=== PATIENT | female | born 2005 | race Caucasian/White ===

== ENCOUNTER 2024-04-06 00:32 | Observation (INO) ==
[2024-04-06] MEDS ORDERED: ONDANSETRON INJ 2 MG/ML 2 ML VIAL IV PRN ×2 (01:25→07:43)
--- NOTE | 2024-04-06 01:38 | History & Physical Report ---
Date of Service April 06, 2024 Assessment & Plan (1) Appendicitis: Plan: Due to the patient's symptomatology and findings on CT scan she has been transferred to [facility] on the surgical service. Will proceed as follows: N.p.o. status will be implemented Will provide IV fluid for hydration Analgesics to be provided Antiemetics we provided The patient did receive antibiotics in the form of Zosyn while at [facility]. I did call the transferring facility and the patient received this antibiotic on 04/05/2024 with a dose finishing at approximately 11:45 PM. Will therefore initiate her next dose of this medication at approximate 4:00 AM on 04/06/2024. (This plan was discussed with pharmacy) The patient did have an abnormal urinalysis at her previous facility. I will order a urine culture. The selected antibiotic should cover the most likely urinary pathogens, if present. Will tentatively plan on having the patient undergo an appendectomy with Dr. Yoni Treadwell, amounting to just to general surgery the morning of 04/06/2024 Will use SCDs for DVT prevention, no chemical means due to planned surgery Additional recommendations be forthcoming based on operative findings and her postoperative recovery thereafter She will be a level 1 full code as above. hx/exam/imaging c/w acute appendicitis. discussed risks ( bleeding/infection/injury to an organ/blood clots etc...) questions answered. pt agreeable. will proceed this AM with lap appendectomy Admission and Anticipated Discharge Date Admission Date: April 06, 2024 History of Present Illness Chief Complaint: Abdominal pain Primary Care Provider: Moni Davis MD This is a 19-year-old female who was transferred to [place], [place] from [facility] in [place], [place]. The patient currently attends college at [employer] and approximately 1 week ago developed abdominal pain that she notes was in the right lower quadrant of her abdomen. She does note that she was seen at a hospital branch of [facility] in [place], [place], approximately 3 days after her symptoms began where she was diagnosed with colitis. (She does note that they did perform a CT scan of her abdomen and pelvis). Due to the concern for colitis she was placed on antibiotics in form of metronidazole which she says she has been taking. Patient notes that despite taking these antibiotics her pain has persisted. The patient does reside in [place], [place] and was seen at [facility] ([facility]) earlier today due to persistent abdominal pain. Again the patient does have the pain is in the right lower quadrant of her abdomen without any radiation or modifying factors. She denies any nausea or vomiting. She denies any fevers, shakes, or chills. She notes that she has never had surgery in the past. While at [facility] the patient did undergo a repeat CT scan of abdomen pelvis that showed that her appendix measured approximately 9 mm. There is some surrounding fat stranding but no evidence of perforation. The interpreting radiologist felt that this raise a concern for an early acute appendicitis. Labs include a CBC where her white blood cell count, hemoglobin, hematocrit, and platelet count were normal. Chemistry profile showed sodium and potassium as well as BUN and creatinine were normal. She did not have any elevation of her LFTs or lipase. Patient also had a negative test. Urinalysis was concerning for urinary tract infection. Due to concern for early acute appendicitis transferred to [facility] was requested. I visited with the patient and evaluated her in room 381. At the time of my interview she was resting comfortably at the bedside. She was in no distress. Concerning past medical history she denies any medical problems Concerning past surgical history she denies any previous surgeries Patient says she is not on any medicine allergies and only takes control pills Concerning social history she does not smoke or vape but does drink alcohol socially Concerning family history she is not aware of any family medical problems. Allergies Allergy/AdvReac Type Severity Reaction Status Date / Time No Known Allergies Allergy Mild Verified 01/19/23 11:54 Home Medications Medication Instructions Recorded Confirmed Type Amoxicillin (Amoxil 250MG/5ML *) ##0 06/10/06 01/19/23 History BENADRYL ##0 06/10/06 01/19/23 History Past Med/Surg History Problem List (Updated 04/06/24 @ 01:36 by Matias Stanley PA-C) Appendicitis Social History Smoking Status: Never smoker Hx Alcohol Use: Yes Alcohol type: wine Hx Substance Use: No Preferred Language: Frisian Communication Ability: Effective Bone Grinder Required: No Beliefs That Will Affect Care: None Current Living Situation: Family and Other Current Living Situation Comment: 3 roomates at school and parents at [employer] Other Information That Helps Us Care for You: No Feels Safe at Home: Yes Safety Concerns: Feels Safe At This Time Assistive Devices: Glasses Review of Systems Review of Systems: All systems reviewed & are unremarkable except as noted in HPI & below Physical Exam Constitutional: WD/WN, vitals as above Eyes: no conjunctival abnormality Wears glasses ENMT: Ears: no hearing impairment and no external ear abnormality Mouth: no oropharynx abnormality Neck: trachea midline Respiratory: normal respiratory effort; no respiratory distress and no labored breathing Cardiovascular: Rate/Rhythm: regular rate and regular rhythm Gastrointestinal (Abdomen): Abdomen is soft and nonrigid. It is nondistended. There is no rebound tenderness or guarding. Patient did have pain with palpation of the right lower quadrant over McBurney's point. Musculoskeletal: Feet are warm and well-perfused Skin: no rashes Neurologic: moves all extremities Psychiatric: A+Ox3, euthymic affect Results & Data Results & Data Vital Signs (Past 12 Hours) Vital Signs Temp Pulse Resp BP Pulse Ox O2 Del Method 04/06/24 01:04 37.1 C 67 18 108/72 96 Room Air Code Status & VTE Plan VTE Prophylaxis Plan VTE Prophylaxis will be ordered: Yes PG Care Time/CCT Total # of Minutes Spent Total Time Spent with Patient: Total time spent is greater than 50% in coordination of care (as documented) at patient's floor/unit and/or counseling patient: Coding Level of Care Code 31956 INT INP/OBS CARE 3/75MIN Diagnoses Appendicitis K37
[2024-04-06] MEDS: SODIUM CHLORIDE 0.9% 1,000 ML IV SCH (01:44)
[2024-04-06] MEDS: ACETAMINOPHEN 1,000 MG/100 ML VIAL IV PRN (01:44)
[2024-04-06] MEDS: PIPERACILLIN/TAZOBACTAM 4.5 GM/100 ML BAG IV SCH (04:47)
[2024-04-06] MEDS ORDERED: MIDAZOLAM HCL 1 MG/ML 2ML VIAL ONE (07:21)
[2024-04-06] MEDS ORDERED: fentaNYL citrate PF 100 MCG/2 ML VIAL ONE (07:21)
[2024-04-06] MEDS ORDERED: METOCLOPRAMIDE HCL INJ 5 MG/ML 2 ML VIAL ONE (07:24)
[2024-04-06] MEDS ORDERED: LIDOCAINE 2% 2 ML VIAL/AMP(20MG/ML) INFIL ONE (07:24)
[2024-04-06] MEDS ORDERED: DEXAMETHASONE SOD INJ 4 MG/ML VIAL ONE (07:24)
[2024-04-06] MEDS ORDERED: ROCURONIUM BROMIDE 10 MG/ML 5 ML VIAL IV ONE (07:24)
[2024-04-06] MEDS ORDERED: ONDANSETRON INJ 2 MG/ML 2 ML VIAL ONE (07:24)
[2024-04-06] MEDS ORDERED: PROPOFOL IV EMULSION 10 MG/ML 20 ML VIAL IV ONE (07:24)
[2024-04-06] MEDS ORDERED: SCOPOLAMINE 1 MG/72 HR TDSY PATCH TD ONE (07:27)
--- NOTE | 2024-04-06 07:42 | Anesthesiology Consultation ---
Date of Service April 06, 2024 Assessment & Plan Chart Review Chart Review: Acceptable Risk for Surgery and Patient NOT seen in Pre Admission Testing Consults Requested none ASA ASA2 Proposed Anesthesia Anesthesia Type: General History Surgery Operation Date: 04/06/24 07:30 Proposed Procedures p Laparoscopic Appendectomy - Moises Treadwell, Height/Weight Height: 5 ft 10 in Weight: 78.2 kg Allergies Allergy/AdvReac Type Severity Reaction Status Date / Time No Known Allergies Allergy Mild Verified 01/19/23 11:54 Medications Home Medications Medication Instructions Recorded Confirmed Last Taken Amoxicillin (Amoxil 250MG/5ML *) ##0 06/10/06 01/19/23 Unknown BENADRYL ##0 06/10/06 01/19/23 Unknown Active Medications Generic Name Dose Route Start Last Admin Trade Name Freq PRN Reason Stop Dose Admin Sodium Chloride 1,000 mls @ 100 mls/hr 04/06/24 01:30 04/06/24 01:44 Nss IV 04/07/24 01:29 100 mls/hr .Q10H ANDREW Administration Acetaminophen 1,000 mg in 100 mls @ 400 mls/hr 04/06/24 01:25 04/06/24 02:02 Ofirmev IV 04/09/24 01:24 Infused Q8H PRN Infusion Moderate Pain (Scale 4, 5, 6) Piperacillin Sod/Tazobactam Sod 4.5 gm in 100 mls @ 25 mls/hr 04/06/24 04:00 04/06/24 04:47 Zosyn IV 04/16/24 03:59 25 mls/hr Q8H ANDREW Administration Protocol Social History Smoking Status: Never smoker Hx Alcohol Use: Yes Alcohol type: wine alcohol intake frequency: a few times a month Hx Substance Use: No substance use type: does not use Physical Exam Vital Signs Last Vital Signs Temp 36.6 C 04/06/24 07:08 Pulse 51 L 04/06/24 07:08 Resp 16 04/06/24 07:08 BP 99/65 L 04/06/24 07:08 Pulse Ox 99 04/06/24 07:08 O2 Del Method Room Air 04/06/24 07:08 Constitutional WD/WN, vitals as above Eyes no conjunctival abnormality ENMT Ears: no hearing impairment and no external ear abnormality Mouth: no oropharynx abnormality Neck trachea midline Respiratory normal respiratory effort; no respiratory distress and no labored breathing Cardiovascular Rate/Rhythm: regular rate and regular rhythm Skin no rashes Neurologic moves all extremities Psychiatric A+Ox3, euthymic affect Testing Laboratory Results 04/06/24 Unknown Urine Test Pending
[2024-04-06] MEDS ORDERED: ePHEDrine sulfate 50 MG/ML AMP IV PRN (07:43)
[2024-04-06] MEDS ORDERED: ATROPINE SULFATE 0.1 MG/ML 10ML SYR IV PRN (07:43)
[2024-04-06] MEDS ORDERED: fentaNYL citrate PF 100 MCG/2 ML VIAL IV PRN (07:43)
[2024-04-06 07:55] LABS: Pregnancy Test, Urine Negative (Negative)
[2024-04-06] MEDS ORDERED: ePHEDrine sulfate 50 MG/5 ML SYR ONE (08:15)
[2024-04-06] MEDS ORDERED: NEOSTIGMINE METHYLSULFATE 1 MG/ML 10ML VIAL ONE (08:15)
[2024-04-06] MEDS ORDERED: PHENYLEPHRINE HCL 10 MG/ML VIAL ONE (08:15)
[2024-04-06] MEDS ORDERED: SUCCINYLCHOLINE 100MG/5ML SYR IV ONE (08:25)
[2024-04-06] MEDS ORDERED: GLYCOPYRROLATE 0.2 MG/ML VIAL ONE (08:32)
[2024-04-06] MEDS ORDERED: KETOROLAC 30 MG/ML VIAL ONE (08:33)
[2024-04-06] MEDS: BUPIVACAINE/EPINEPHRINE 0.5% MPF 1:200,000 30 ML VIAL ONE (08:41)
--- NOTE | 2024-04-06 08:51 | Operative Report ---
PG Post Operative Report Pre & Post Diagnosis Operation Date: 04/06/24 07:30 Pre-Op Diagnosis: Acute Appendicitis Post-Op Diagnosis: Acute Appendicitis; suspected endometriosis I identified the patient and participated in the time-out.: Yes Procedure Operation Date: 04/06/24 07:30 Actual Procedures p Laparoscopic Appendectomy(Not Applicable); peritoneal biopsy; fulguration of suspected endometriosis - Moises Treadwell DO Surgeon Moises Treadwell DO Evp And Chief Operating Officer charlotte Cook Estimated Blood Loss 3 Findings Consistent with Post-Op Diagnosis Specimens 1. appendix 2. peritoneal bx/suspect endometriosis Description of Procedure After informed consent was obtained the patient was taken to the operating room and placed in supine position. After successful intubation the abdomen was sterilely prepped and draped in usual fashion. I began by making a periumbilical incision with an 11 blade scalpel and carried this down through the soft tissue using electrocautery. The anterior rectus fascia was opened using electrocautery and 2 #0 Vicryl stay sutures were placed. The peritoneum was elevated using hemostats and incised under direct vision using a Metzenbaum scissor. A finger sweep was performed. A 12 mm Villarreal trocar was placed and the abdomen was insufflated to 18 mmHg. A laparoscope was inserted and the abdomen was examined in 360. A suprapubic 5 mm port and a left lower quadrant 12 mm port were placed under direct vision. The patient was air planed to the left as well as placed in a slight Trendelenburg position. We began by looking in the right lower quadrant. We were able to readily identify the appendix and the tip appeared mildly inflamed. It had not perforated. There is a small amou nt of serous fluid in the right lower quadrant and the pelvis. We immediately suctioned this out. I was able to use primarily blunt dissection to pull the appendix away from the right lower quadrant sidewall. I was then able to use a EITAN brown cartridge stapler to transect both the mesentery of the appendix as well as the appendix itself at its base with the cecum. It was then placed into an Endo Catch bag and removed from the camera port site. There was adequate hemostasis. I ran the small bowel backwards from the terminal ileum for about 6 feet all of which was normal. Interestingly in the right lower quadrant on the sidewall there was a 1 cm lesion that appeared to be consistent with an endometrial implant. This was biopsied using sharp scissor lysis and then fulgurated using cautery. We did examine the rest of the peritoneal surfaces including the ovary tubes uterus and pelvic peritoneum. There was no other evidence of endometriosis. Small/ large bowel, liver, stomach etc. all appeared grossly normal. Next I removed all the trochars and desufflated the abdomen. The fascia of the camera port as well as the left lower quadrant were closed using 0 Vicryl in [id number] fashion. Wounds were all irrigated and closed using 4-0 Monocryl. Marcaine was injected around them for postoperative analgesia and skin glue used as a dressing. The patient was awakened extubated and transferred to recovery in stable condition. My physician's assistant manager retail was present through the entire case. She assisted with prepping the patient and helped with exposure for port placement, helped run the camera and helped with fascial/wound closure at the end of the procedure as well as dressing placement. I attest to the content of the Intraoperative Record and any orders documented therein. Any exceptions are noted below. I attest to the content of the Intraoperative Record and any orders documented therein. Any exceptions are noted below.
--- NOTE | 2024-04-06 09:17 | Anesthesiology Progress Note ---
Date of Service April 06, 2024 Anesthesia Post Procedure Vital Signs Vital Signs: Temp Pulse Pulse Resp BP Pulse Ox O2 Del Method 04/06/24 09:15 73 16 116/64 98 Room Air 04/06/24 09:05 65 22 122/64 97 Room Air 04/06/24 08:56 36.5 C 87 24 133/67 98 Oxymask 04/06/24 07:15 Room Air 04/06/24 07:08 36.6 C 51 L 16 99/65 L 99 Room Air 04/06/24 01:04 37.1 C 67 18 108/72 96 Room Air O2 Flow Rate 04/06/24 09:15 04/06/24 09:05 04/06/24 08:56 5 04/06/24 07:15 04/06/24 07:08 04/06/24 01:04 Pain Intensity Left Abdomen: Pain Intensity: 4 Transfer of Care Handoff Completed per policy Notes Mental Status: alert / awake / arousable Patient Amnestic to Procedure: Yes Nausea / Vomiting: adequately controlled Pain: adequately controlled Airway Patency, RR, SpO2: stable & adequate BP & HR: stable & adequate Hydration State: stable & adequate Anesthetic Complications: no major complications apparent and Pt Satisfied with anesthetic care
[2024-04-06] MEDS ORDERED: oxyCODONE HCL IR 5 MG TAB (IMMEDIATE RELEASE) PO PRN ×2 (09:33)
[2024-04-06] MEDS: FAMOTIDINE/PF 20 MG/2 ML VIAL IV ONE (09:36)
[2024-04-06] MEDS: MoRPHine SULFATE 4 MG/ML 1 ML CARP\\VIAL IV PRN (09:41)
[2024-04-06] MEDS: ACETAMINOPHEN 1,000 MG/100 ML VIAL IV SCH (10:28)
[2024-04-06 11:34] VITALS: RESP 16; O2SAT 97
[2024-04-06 12:43] VITALS: BP 103/58; PULSE 70; TEMP 98.4
--- NOTE | 2024-04-09 09:57 | Discharge Summary ---
Date of Service April 06, 2024 Admission HPI Per Admitting Provider This is a 19-year-old female who was transferred to [place], [place] from [facility] in [place], [place]. The patient currently attends [employer] [facility] [employer] and approximately 1 week ago developed abdominal pain that she notes was in the right lower quadrant of her abdomen. She does note that she was seen at a hospital branch of [facility] in [place], [place], approximately 3 days after her symptoms began where she was diagnosed with colitis. (She does note that they did perform a CT scan of her abdomen and pelvis). Due to the concern for colitis she was placed on antibiotics in form of metronidazole which she says she has been taking. Patient notes that despite taking these antibiotics her pain has persisted. The patient does reside in [place], [place] and was seen at [facility] ([facility]) earlier today due to persistent abdominal pain. Again the patient does have the pain is in the right lower quadrant of her abdomen without any radiation or modifying factors. She denies any nausea or vomiting. She denies any fevers, shakes, or chills. She notes that she has never had surgery in the past. While at [facility] the patient did undergo a repeat CT scan of abdomen pelvis that showed that her appendix measured approximately 9 mm. There is some surrounding fat stranding but no evidence of perforation. The interpreting radiologist felt that this raise a concern for an early acute appendicitis. Labs include a CBC where her white blood cell count, hemoglobin, hematocrit, and platelet count were normal. Chemistry profile showed sodium and potassium as well as BUN and creatinine were normal. She did not have any elevation of her LFTs or lipase. Patient also had a negative test. Urinalysis was concerning for urinary tract infection. Due to concern for early acute appendicitis transferred to [facility] was requested. I visited with the patient and evaluated her in room 381. At the time of my interview she was resting comfortably at the bedside. She was in no distress. Concerning past medical history she denies any medical problems Concerning past surgical history she denies any previous surgeries Patient says she is not on any medicine allergies and only takes control pills Concerning social history she does not smoke or vape but does drink alcohol socially Concerning family history she is not aware of any family medical problems. Principal Diagnosis acute appendicitis Discharge Exam awake/alert, no distress Respiratory normal respiratory effort Gastrointestinal (Abdomen) Inspection/Auscultation: + abdominal surgical incision (dermabond over incisions) Percussion/Palpation: + abdomen tender (expected guillaume incisional discomfort to palpation) and abdomen soft Discharge Data Allergies Allergy/AdvReac Type Severity Reaction Status Date / Time No Known Allergies Allergy Mild Verified 01/19/23 11:54 Procedures Performed Operation Date: 04/06/24 07:30 Actual Procedures p Laparoscopic Appendectomy(Not Applicable) - Moises Treadwell, DO Hospital Course (1) Appendicitis: This is a 19y F who presented to the [facility] ED on 04/06 with abdominal pain. She was worked up at [facility] initially where she underwent a CT scan concerning for appendicitis. They did not have any surgeons hat cone inspector and there were no beds available at [place] where they were attempted to transfer her. Therefore a transfer was initiated to our ER where we have general surgery availability and were close in proximity. The patient was tender to palpation in the RLQ. Given her examination, symptoms, and CT scan findings for acute appendicitis she was kept NPO with IVF and booked for the OR. On 04/06 the patient went to the OR with Dr. Treadwell for a laparoscopic appendectomy along with a peritoneal biopsy for findings concerning of an area of endometriosis. The patient tolerated the procedure well, see operative report for full details. Post operatively the patient's diet was advanced, pain managed on prn meds, and incisions clean/dry/intact. On POD#0 the patient was deemed stable for discharge to home. Total Time Total Time Spent Total Time Spent (In Minutes): 15 Discharge Plan Discharge Items Patient Disposition: Home - Self-Care Reason For Visit: ACCUTE APPY Discharge Diagnosis: laparoscopic appendectomy Activity: Per Instructions section Lifting: No more than 10 pounds Bathing Comment: may shower; no soaking in tubs/pools x 2 weeks Exercise/Sports: Wait until after follow-up appointment Driving/Machine Use: no driving while on narcotics for pain ; wait at least 3days Non-emergency contact: Surgeon Call non-emergency contact if: you have any medication questions, your symptoms worsen, your pain is not controlled, your pain is worsening, your pain is unusual for you, you have a fever, your temperature is above 101.5, your wound has increased redness, your wound has increased drainage and your wound pain has increased Follow-up/Referrals: Moises Treadwell, [Surgeon] - (please call to schedule follow up in clinic within 2 weeks ) Moni Davis MD [Primary Care Provider] - Diet: Regular Addtl Attending Provider Instructions: You have skin glue over your incisions called dermabond. you may shower with this on. It will tend to dissolve and fall off within a couple weeks. Do not pick at the skin glue You may purchase Tylenol and/or Ibuprofen over the counter if needed for additional pain control over the next few days. Take per manufacturers instructions Pending Studies at Discharge: Yes Studies:: surgical pathology Stand-Alone Forms: My [facility] [place], Smoking Cessation Medications and DC Order Prescriptions: New oxycodone 5 mg tablet 5 - 10 mg PO .[id number] PRN (Reason: pain, for initial therapy, max 6 tabs per day) Qty: 12 0RF Continued Amoxicillin (Amoxil 250MG/5ML *) suspension Qty: 0 BENADRYL Qty: 0 Discharge Orders: Discharge Order (Routine); Ordered 04/06/24 Ordered By: Siobhan Cook Admission Data Admit Date/Time: 04/06/24 00:57 Attending Provider: Moises Treadwell Admit Provider: Moises Treadwell Primary Care Provider: Moni Davis Other Interventions: Discharge Summary Assessment (RN) Last Done: 04/06/24 13:17 Coding Level of Care Code 47020 IN/OBS DISCH 30 MIN/LESS Diagnoses Appendicitis K37
== END 2024-04-06 13:44 | disposition home or self-care (01) | DRG 399 ==
LOC: 3N 00:57 → INTOOBSV 00:57